=== PATIENT | female | born 1980 | race Caucasian/White ===

== ENCOUNTER 2018-12-24 07:43 | Emergency (ER) | payer BC, OTHER ==
[2018-12-24 07:59] VITALS: BP 119/70
[2018-12-24] MEDS ORDERED: Tetan/Diph/Pertus SYR(Tdap)* 0.5 ML SYR(BOOSTRIX) use SYR IM ONE (08:00)
[2018-12-24] MEDS ORDERED: Rabies VIRUS VACCINE (Imovax)* 2.5 UNIT/ML 1 ML IM ONE (08:01)
--- NOTE | 2018-12-24 08:22 | UC ---
Bite Injury/Animal HPI - HPI Summary HPI Summary: 38 yo female presents for rabies series. She tells me that she awoke to a bat in her bedroom on December 06. The bat was captured and tested and returned inconclusive for rabies. Pt was advised to undergo the rabies vaccination series. She denies a known bite. She has no symptoms at this time - History of Current Complaint Chief Complaint: UCGeneralIllness Stated Complaint: rabies shots Time Seen by Provider: 12/24/18 08:01 Hx Obtained From: Patient Hx Last Menstrual Period: 07/30/14 Severity Currently: None Pain Intensity: 0 - Allergies/Home Medications Allergies/Adverse Reactions: Allergies Allergy/AdvReac Type Severity Reaction Status Date / Time No Known Allergies Allergy Verified 12/24/18 07:59 PMH/Surg Hx/FS Hx/Imm Hx - Additional Past Medical History Additional PMH: None - Surgical History Surgical History: None - Family History Known Family History: Positive: None - Social History Occupation: Employed Full-time Lives: With Family Alcohol Use: Daily Substance Use Type: None Smoking Status (MU): Light Every Day Tobacco Smoker Type: Cigarettes Amount Used/How Often: 1 cigarette per day Length of Time of Smoking/Using Tobacco: 10 years Have You Smoked in the Last Year: Yes When Did the Patient Quit Smoking/Using Tobacco: 08/01/14 Review of Systems All Other Systems Reviewed And Are Negative: Yes Constitutional: Positive: Other - Bat in bedroom Skin: Positive: Negative Respiratory: Positive: Negative Cardiovascular: Positive: Negative Gastrointestinal: Positive: Negative Neurovascular: Positive: Negative Neurological: Positive: Negative Psychological: Positive: Negative Physical Exam - Summary Physical Exam Summary: GENERAL: NAD. WDWN. No pain distress. SKIN: No bite site appreciated. No streaking, bleeding, or drainage. NECK: Supple. Nontender. No lymphadenopathy. CHEST: No accessory muscle use. Breathing comfortably and in no distress. CV: Pulses intact. Cap refill <2seconds NEURO: Alert. PSYCH: Age appropriate behavior. Triage Information Reviewed: Yes Vital Signs: Initial Vital Signs Temp 98.8 F 12/24/18 07:56 Pulse 72 12/24/18 07:56 Resp 18 12/24/18 07:56 BP 119/70 12/24/18 07:56 Pulse Ox 100 12/24/18 07:56 Vital Signs Reviewed: Yes Bite Injury Course/Dx - Course Course Of Treatment: Pt is unsure the date of her last tetanus, thus tdap was updated today. RIG and rabies vaccination given according to health department guidelines. - Differential Dx/Diagnosis Provider Diagnosis: Contact with and suspected exposure to rabies Discharge - Sign-Out/Discharge Documenting (check all that apply): Patient Departure All imaging exams completed and their final reports reviewed: No Studies - Discharge Plan Condition: Stable Disposition: HOME Patient Education Materials: Rabies Immune Globulin (By injection), Rabies (ED) , Rabies Vaccine (ED) Referrals: Rocky Zimmerman MD [Primary Care Provider] - Additional Instructions: If you develop a fever, shortness of breath, chest pain, new or worsening symptoms - please call your PCP or go to the ED immediately. - Billing Disposition and Condition Condition: STABLE Disposition: Home
[2018-12-24] MEDS ORDERED: Rabies Immune Globulin/PF 1ML* 1 ML/300 UNITS VIAL IM ONE (08:31)
== END 2018-12-24 09:25 | disposition home or self-care (01) ==
LOC: UCEAST 07:43
DX: Z20.3 Contact with and (suspected) exposure to rabies (principal); Z29.14 Encounter for prophylactic rabies immune globulin; Z23 Encounter for immunization; F17.210 Nicotine dependence, cigarettes, uncomplicated
CPT/HCPCS: 90375; 90471; 90472; 90715; 96372; 99201; G0463